=== PATIENT | female | born 1990 | race Caucasian/White ===

== ENCOUNTER 2016-10-09 17:43 | Emergency (ER) | payer OTHER ==
--- NOTE | 2016-10-09 20:19 | EDDOCDS ---
Nurse's Notes [facility] Name: Reanna Prather Age: 26 yrs Sex: Female : 1990 Arrival Date: 10/09/2016 Time: 17:43 Bed TR1 Private MD: NO PRIMARY PHYSICIAN, . Diagnosis: Migraine without aura, not intractable Presentation: 10/09 18:18 Presenting complaint: Patient states: for the past 2 weeks headache and neck aches , [facility] never had headaches like this before. This patient has no additional risk factors. Adult Sepsis Screening: The patient does not have new or worsening altered mentation. Patient's respiratory rate is less than 22. Systolic blood pressure is greater than 100. Patient has a qSOFA score of 0- Negative Sepsis Screen. Suicide/Homicide risk assessment- the patient denies having any suicidal and/or homicidal ideations and does not present with any other emotional, behavioral or mental health complaints. Status: The patient is a dependent. Transition of care: patient was not received from another setting of care. 18:18 Acuity: GILMER Level 3 [facility] 18:18 Method Of Arrival: Walkin/Carried/Asstd [facility] Triage Assessment: 18:21 Headache History: This headache is more severe than any previous headaches the patient [facility] has experienced. General: Appears well nourished, well groomed, Behavior is appropriate for age, pleasant. Pain: Location: base of the skull, right temporal area, right side of forehead, right occipital area and right base of the skull Pain currently is 5 out of 10 on a pain scale. Pain began 2 weeks Also complains of nausea, photophobia, blurry vision. Pt Declines HIV testing. Neurological: Level of Consciousness is awake, alert, Oriented to person, place, time, Reports headache. Respiratory: Airway is patent Respiratory effort is even, unlabored, Respiratory pattern is regular, symmetrical. Derm: Skin is pink, warm & dry. 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 Excedrin Migraine 250-250-65 mg Oral tab 2 tablets every 4 hours as needed (Last dose: 10/09/2016 16:00) - PMHx: none; - PSHx: uterine artery embolization; - Social history: Smoking status: Patient states was never smoker of tobacco. No barriers to communication noted, The patient speaks fluent Tamazight. - Family history: Not pertinent. - : The pt / caregiver states he / she is not on anticoagulants. Home medication list is obtained from the patient. - Exposure Risk Screening:: None identified. Screenin:16 Screening information is obtained from the patient. Fall risk: No risks identified. jo3 Assistance ADL's: requires no assistance with activities of daily living. Abuse/DV Screen: The patient / caregiver reports he/she is: not in a situation that causes fear, pain or injury. Nutritional screening: No deficits noted. Advance Directives: Currently, there is no health care proxy. There is no active DNR order. home support is adequate. Assessment: 20:16 General: Appears in no apparent distress, comfortable, Behavior is appropriate for age, jo3 cooperative, pleasant. Neurological: No deficits noted. Level of Consciousness is awake, alert, Oriented to person, place, time. Respiratory: Airway is patent Respiratory effort is even, unlabored. Derm: Skin is pink, warm & dry. Vital Signs: 17:44 BP 127 / 87; Pulse 64; Resp 16; Temp 96.2(O); Pulse Ox 96% on R/A; Weight 79.38 kg (R); elp Height 5 ft. 9 in. (175.26 cm) (R); 17:44 Body Mass Index 25.84 (79.38 kg, 175.26 cm) [facility] Vitals: 17:44 Log In Time: October 09, 2016 at 17:42. [facility] ED Course: 17:44 Patient visited by Dagmar Benavidez PCA. elp 17:44 NO PRIMARY PHYSICIAN, . is Private Physician. elp 17:44 Patient moved to Waiting elp 17:46 Patient visited by Dagmar Benavidez PCA. elp 17:46 Patient moved to Pre RCE elp 18:19 Triage Initiated kpj 19:27 Patient moved to Triage 2 cz 19:40 [facility] mo1 19:40 Jose Osei DO is Attending Physician. mo1 19:56 Patient visited by Cyn Alcaraz RN. jo3 19:58 Patient visited by Teto Angelo PA. mo1 20:04 [facility]. mo1 20:04 [facility] mo1 20:15 Patient moved to TR1 jo3 20:16 No IV's were initiated during this patient's visit. No procedures done that require jo3 assistance. Order Results: There are currently no results for this order. Outcome: 20:04 Discharge ordered by Provider. mo1 20:16 Discharge Assessment: Patient awake, alert and oriented x 3. No cognitive and/or jo3 functional deficits noted. Patient verbalized understanding of disposition instructions. patient administered narcotics - no. The following High Risk Discharge criteria are identified: None. Discharged to home ambulatory. Condition: stable. Discharge instructions given to patient, Instructed on discharge instructions, follow up and referral plans. Demonstrated understanding of instructions, Pt was receptive of discharge instructions/ teaching. No special radiology studies were completed. Property sent home with patient. 20:18 Patient left the ED. jo3 Signatures: Regina Guajardo RN RN kpj Zecher, Calvin, RN RN cz Helmerci, Jennifer, RN RN jo3 Teto Angelo PA PA mo1 Dagmar Benavidez, ALBERTO NUMERICAL CONTROL NESTING OPERATOR elp MTDAnmol
--- NOTE | 2016-10-09 20:19 | EDDOCDS ---
Physician Documentation [facility] Name: Reanna Prather Age: 26 yrs Sex: Female : 1990 Arrival Date: 10/09/2016 Time: 17:43 Bed TR1 Private MD: NO PRIMARY PHYSICIAN, . Disposition: 10/09/16 20:04 Discharged to Home/Self Care. Impression: Migraine without aura, not intractable. - Condition is Stable. - Discharge Instructions: Migraine Headache. - Medication Reconciliation, Local Pharmacy Hours form. - Follow up: Kady Zavala [facility]; When: Call to arrange an appointment; Reason: Recheck today's complaints, Continuance of care. Follow up: Kady Zavala [facility]; When: Call to arrange an appointment; Reason: Recheck today's complaints, Continuance of care. - Problem is new. - Symptoms are unchanged. Historical: - Allergies: No known drug Allergies; - Home Meds: 1. Excedrin Migraine 250-250-65 mg Oral tab 2 tablets every 4 hours as needed (Last dose: 10/09/2016 16:00) - PMHx: none; - PSHx: uterine artery embolization; - Social history: Smoking status: Patient states was never smoker of tobacco. No barriers to communication noted, The patient speaks fluent Faroese. - Family history: Not pertinent. - : The pt / caregiver states he / she is not on anticoagulants. Home medication list is obtained from the patient. - Exposure Risk Screening:: None identified. 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 9 in. (175.26 cm) (R); 17:44 Body Mass Index 25.84 (79.38 kg, 175.26 cm) elp Signatures: Regina Guajardo RN RN [facility] Cyn Alcaraz RN RN momo3 Teto Angelo PA PA mo1 MTDD
--- NOTE | 2016-10-11 21:19 | EDDOCDS ---
Nurse's Notes [facility] Name: Reanna Prather Age: 26 yrs Sex: Female : 1990 Arrival Date: 10/09/2016 Time: 17:43 Bed TR1 Private MD: NO PRIMARY PHYSICIAN, . Diagnosis: Migraine without aura, not intractable Presentation: 10/09 18:18 Presenting complaint: Patient states: for the past 2 weeks headache and neck aches , [facility] never had headaches like this before. This patient has no additional risk factors. Adult Sepsis Screening: The patient does not have new or worsening altered mentation. Patient's respiratory rate is less than 22. Systolic blood pressure is greater than 100. Patient has a qSOFA score of 0- Negative Sepsis Screen. Suicide/Homicide risk assessment- the patient denies having any suicidal and/or homicidal ideations and does not present with any other emotional, behavioral or mental health complaints. Status: The patient is a dependent. Transition of care: patient was not received from another setting of care. 18:18 Acuity: GILMER Level 3 [facility] 18:18 Method Of Arrival: Walkin/Carried/Asstd [facility] Triage Assessment: 18:21 Headache History: This headache is more severe than any previous headaches the patient [facility] has experienced. General: Appears well nourished, well groomed, Behavior is appropriate for age, pleasant. Pain: Location: base of the skull, right temporal area, right side of forehead, right occipital area and right base of the skull Pain currently is 5 out of 10 on a pain scale. Pain began 2 weeks Also complains of nausea, photophobia, blurry vision. Pt Declines HIV testing. Neurological: Level of Consciousness is awake, alert, Oriented to person, place, time, Reports headache. Respiratory: Airway is patent Respiratory effort is even, unlabored, Respiratory pattern is regular, symmetrical. Derm: Skin is pink, warm & dry. 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 Excedrin Migraine 250-250-65 mg Oral tab 2 tablets every 4 hours as needed (Last dose: 10/09/2016 16:00) - PMHx: none; - PSHx: uterine artery embolization; - Social history: Smoking status: Patient states was never smoker of tobacco. No barriers to communication noted, The patient speaks fluent Yakut. - Family history: Not pertinent. - : The pt / caregiver states he / she is not on anticoagulants. Home medication list is obtained from the patient. - Exposure Risk Screening:: None identified. Screenin:16 Screening information is obtained from the patient. Fall risk: No risks identified. jo3 Assistance ADL's: requires no assistance with activities of daily living. Abuse/DV Screen: The patient / caregiver reports he/she is: not in a situation that causes fear, pain or injury. Nutritional screening: No deficits noted. Advance Directives: Currently, there is no health care proxy. There is no active DNR order. home support is adequate. Assessment: 20:16 General: Appears in no apparent distress, comfortable, Behavior is appropriate for age, jo3 cooperative, pleasant. Neurological: No deficits noted. Level of Consciousness is awake, alert, Oriented to person, place, time. Respiratory: Airway is patent Respiratory effort is even, unlabored. Derm: Skin is pink, warm & dry. Vital Signs: 17:44 BP 127 / 87; Pulse 64; Resp 16; Temp 96.2(O); Pulse Ox 96% on R/A; Weight 79.38 kg (R); elp Height 5 ft. 9 in. (175.26 cm) (R); 17:44 Body Mass Index 25.84 (79.38 kg, 175.26 cm) [facility] Vitals: 17:44 Log In Time: October 09, 2016 at 17:42. [facility] ED Course: 17:44 Patient visited by Dagmar Benavidez PCA. elp 17:44 NO PRIMARY PHYSICIAN, . is Private Physician. elp 17:44 Patient moved to Waiting elp 17:46 Patient visited by Dagmar Benavidez PCA. elp 17:46 Patient moved to Pre RCE elp 18:19 Triage Initiated kpj 19:27 Patient moved to Triage 2 cz 19:40 [facility] mo[facility] 19:40 Jose Osei DO is Attending Physician. mo1 19:56 Patient visited by Cyn Alcaraz RN. jo3 19:58 Patient visited by Teto Angelo PA. mo1 20:04 [facility]. mo1 20:04 [facility] mo1 20:15 Patient moved to TR1 jo3 20:16 No IV's were initiated during this patient's visit. No procedures done that require jo3 assistance. 20:19 [facility] Payment Agreement was scanned into [employer] and attached to record. [email or web address] 10/10 10:47 T-Sheet-- Draft Copy was scanned into [employer] and attached to record. gb Order Results: There are currently no results for this order. Outcome: 10/09 20:04 Discharge ordered by Provider. mo1 20:16 Discharge Assessment: Patient awake, alert and oriented x 3. No cognitive and/or jo3 functional deficits noted. Patient verbalized understanding of disposition instructions. patient administered narcotics - no. The following High Risk Discharge criteria are identified: None. Discharged to home ambulatory. Condition: stable. Discharge instructions given to patient, Instructed on discharge instructions, follow up and referral plans. Demonstrated understanding of instructions, Pt was receptive of discharge instructions/ teaching. No special radiology studies were completed. Property sent home with patient. 20:18 Patient left the ED. jo3 Signatures: Regina Guajardo, RN RN Gonzalo Meza, RN Mulu Montaño, Reg Reg Cyn GraceRN RN jo3 Teto Angelo PA PA mo1 Dagmar Benavidez, BARREL CUTTER BARREL CUTTER Maribel Carty, Reg Reg [email or web address] Chart Complete MTDD
--- NOTE | 2016-10-11 21:19 | EDDOCDS ---
Physician Documentation [facility] Name: Reanna Prather Age: 26 yrs Sex: Female : 1990 Arrival Date: 10/09/2016 Time: 17:43 Bed TR1 Private MD: NO PRIMARY PHYSICIAN, . Disposition: 10/09/16 20:04 Discharged to Home/Self Care. Impression: Migraine without aura, not intractable. - Condition is Stable. - Discharge Instructions: Migraine Headache. - Medication Reconciliation, Local Pharmacy Hours form. - Follow up: Kady Zavala [facility]; When: Call to arrange an appointment; Reason: Recheck today's complaints, Continuance of care. Follow up: Kady Zavala, [facility]; When: Call to arrange an appointment; Reason: Recheck today's complaints, Continuance of care. - Problem is new. - Symptoms are unchanged. Historical: - Allergies: No known drug Allergies; - Home Meds: 1. Excedrin Migraine 250-250-65 mg Oral tab 2 tablets every 4 hours as needed (Last dose: 10/09/2016 16:00) - PMHx: none; - PSHx: uterine artery embolization; - Social history: Smoking status: Patient states was never smoker of tobacco. No barriers to communication noted, The patient speaks fluent Hungarian. - Family history: Not pertinent. - : The pt / caregiver states he / she is not on anticoagulants. Home medication list is obtained from the patient. - Exposure Risk Screening:: None identified. 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 9 in. (175.26 cm) (R); 17:44 Body Mass Index 25.84 (79.38 kg, 175.26 cm) elp MDM: 20:18 Financial registration complete. 20:19 [facility] Payment Agreement was scanned into [employer] and attached to record. 10/10 10:47 T-Sheet-- Draft Copy was scanned into [employer] and attached to record. gb Signatures: Jobson, ReginaEVAN garrido RN, Gloria, Reg Reg gb Cyn Alcaraz RN RN jo3 O'Hagan, Michael, PA PA mo1 Maribel Stanley, Reg Reg [email or web address] The chart was reviewed and I authenticate all verbal orders and agree with the evaluation and treatment provided.Attachments: 10/09 20:19 [facility] Payment Agreement [email or web address] 10/10 10:47 T-Sheet-- Draft Copy gb Chart Complete MTDD
--- NOTE | 2016-10-11 21:19 | EDDOCDS ---
Physician Documentation [facility] Name: Reanna Prather Age: 26 yrs Sex: Female : 1990 Arrival Date: 10/09/2016 Time: 17:43 Bed TR1 Private MD: NO PRIMARY PHYSICIAN, . Disposition: 10/09/16 20:04 Discharged to Home/Self Care. Impression: Migraine without aura, not intractable. - Condition is Stable. - Discharge Instructions: Migraine Headache. - Medication Reconciliation, Local Pharmacy Hours form. - Follow up: Kady Zavala [facility]; When: Call to arrange an appointment; Reason: Recheck today's complaints, Continuance of care. Follow up: Kady Zavala, [facility]; When: Call to arrange an appointment; Reason: Recheck today's complaints, Continuance of care. - Problem is new. - Symptoms are unchanged. Historical: - Allergies: No known drug Allergies; - Home Meds: 1. Excedrin Migraine 250-250-65 mg Oral tab 2 tablets every 4 hours as needed (Last dose: 10/09/2016 16:00) - PMHx: none; - PSHx: uterine artery embolization; - Social history: Smoking status: Patient states was never smoker of tobacco. No barriers to communication noted, The patient speaks fluent Mongolian. - Family history: Not pertinent. - : The pt / caregiver states he / she is not on anticoagulants. Home medication list is obtained from the patient. - Exposure Risk Screening:: None identified. 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 9 in. (175.26 cm) (R); 17:44 Body Mass Index 25.84 (79.38 kg, 175.26 cm) elp MDM: 20:18 Financial registration complete. 20:19 [facility] Payment Agreement was scanned into [employer] and attached to record. 10/10 10:47 T-Sheet-- Draft Copy was scanned into [employer] and attached to record. gb Signatures: Jobson, ReginaEVAN garrido RN, Gloria, Reg Reg gb Cyn Alcaraz RN RN jo3 O'Hagan, Michael, PA PA mo1 Maribel Stanley, Reg Reg [email or web address] The chart was reviewed and I authenticate all verbal orders and agree with the evaluation and treatment provided.Attachments: 10/09 20:19 [facility] Payment Agreement [email or web address] 10/10 10:47 T-Sheet-- Draft Copy gb Chart Complete MTDD
== END 2016-10-09 20:18 | disposition home or self-care (01) ==
LOC: M ED 17:43
DX: G43.909 Migraine, unspecified, not intractable, without status migrainosus (principal); S16.1XXA Strain of muscle, fascia and tendon at neck level, initial encounter; X58.XXXA Exposure to other specified factors, initial encounter; Y92.89 Other specified places as the place of occurrence of the external cause; Y93.89 Activity, other specified; Y99.8 Other external cause status